=== PATIENT | female | born 2005 | race Caucasian/White ===

== ENCOUNTER 2024-06-22 10:55 | Emergency (ER) | payer OTHER ==
[2024-06-22 11:26] LABS: BASOPHILS PERCENT AUTO 0.3 % (0.2-1.2); EOSINOPHILS ABSOLUTE AUTO 0.2 x10^3/uL (0.0-0.5); HEMATOCRIT 40.5 % (33.0-47.0); HEMOGLOBIN 14.4 g/dL (12.0-16.0); IMMATURE GRAN ABSOLUTE AUTO 0.01 x10^3/uL (0.00-0.07); LYMPHOCYTES ABSOLUTE AUTO 2.4 x10^3/uL (1.0-4.8); LYMPHOCYTES PERCENT AUTO 36.1 % (25.0-50.0); MEAN CORPUSCULAR HEMOGLOBIN 30.5 pg (26.0-32.0); MEAN CORPUSCULAR HGB CONC 35.6 g/dL (32.0-36.0); MEAN CORPUSCULAR VOLUME 85.8 fL (78.0-93.0); MONOCYTES ABSOLUTE AUTO 0.4 x10^3/uL (0.0-0.8); MONOCYTES PERCENT AUTO 6.2 % (2.0-11.0); NEUTROPHILS ABSOLUTE AUTO 3.7 x10^3/uL (1.8-7.7); NEUTROPHILS PERCENT AUTO 54.3 % (50.0-80.0); PLATELET COUNT,PLT 314 x10^3/uL (130-400); RED BLOOD CELL COUNT 4.72 x10^6/uL (4.00-5.50); WHITE BLOOD CELL COUNT,WBC 6.7 x10^3/uL (4.0-10.0)
[2024-06-22 11:38] LABS: APPEARANCE,URINE CLEAR (CLEAR); BILIRUBIN,URINE NEGATIVE (NEGATIVE); COLOR,URINE YELLOW (YELLOW); GLUCOSE,URINE NEGATIVE (NEGATIVE); KETONES,URINE NEGATIVE (NEGATIVE); LEUKOCYTE ESTERASE,URINE TRACE (NEGATIVE); NITRITE,URINE NEGATIVE (NEGATIVE); OCCULT BLOOD,URINE NEGATIVE (NEGATIVE); PROTEIN,URINE NEGATIVE (NEGATIVE); UROBILINOGEN,URINE 0.2 EU/dL (0.2)
[2024-06-22 11:42] LABS: A/G RATIO 0.93; ALANINE AMINOTRANSFERASE,ALT 10 U/L (14-59); ALBUMIN 3.7 g/dL (3.4-5.0); ALKALINE PHOSPHATASE 76 U/L (46-116); ASPARTATE AMNIOTRANSFERASE,AST 12 U/L (15-37); BILIRUBIN TOTAL 0.9 mg/dL (0.2-1.0); BLOOD UREA NITROGEN,BUN 5 mg/dL (7-18); CALCIUM 9.3 mg/dL (8.5-10.1); CARBON DIOXIDE,CO2 23 mmol/L (21-32); CHLORIDE,CL 105 mmol/L (98-107); CREATININE 0.9 mg/dL (0.55-1.02); GLUCOSE RANDOM 91 mg/dL (70-99); POTASSIUM,K 3.7 mmol/L (3.5-5.1); PROTEIN TOTAL,TP 7.7 g/dL (6.4-8.2); SODIUM,NA 142 mmol/L (136-145)
[2024-06-22 11:43] LABS: ANION GAP 17.7 mmol/L (5-15); ESTIMATED GFR 94 mL/min (>=60)
[2024-06-22 11:45] LABS: AMPHETAMINES SCREEN, URINE NEGATIVE (NEGATIVE); BARBITURATE SCREEN,URINE NEGATIVE (NEGATIVE); BUPRENORPHINE SCREEN,URINE NEGATIVE (NEGATIVE)
[2024-06-22 11:46] LABS: BENZODIAZEPINES SCREEN,URINE NEGATIVE (NEGATIVE); COCAINE METABOLITES,URINE NEGATIVE (NEGATIVE); METHADONE SCREEN, URINE NEGATIVE (NEGATIVE); METHAMPHETAMINE SCREEN, URINE NEGATIVE (NEGATIVE); OXYCODONE SCREEN,URINE NEGATIVE (NEGATIVE); PCP SCREEN,URINE NEGATIVE (NEGATIVE); THC SCREEN,URINE 50 NG/ML POSITIVE (NEGATIVE)
[2024-06-22 11:53] LABS: BACTERIA,URINE OCCASIONAL /HPF (NOT SEEN); RBC,URINE 0-5 /HPF (NOT SEEN); SQUAMOUS EPITHELIAL CELLS,UR OCCASIONAL /HPF (NOT SEEN); WBC,URINE 0-5 /HPF (NOT SEEN)
[2024-06-22] MEDS: LORazepam 0.5 MG Tab PO ONE (12:00)
[2024-06-22] MEDS: Ondansetron 4 MG Tab.DIS PO ONE (12:26)
[2024-06-22] MEDS ORDERED: Ibuprofen 200 MG Tab PO PRN (12:28)
[2024-06-22] MEDS: Ibuprofen 200 MG Tab PO ONE (12:57)
== END 2024-06-22 13:03 | disposition home or self-care (01) ==
LOC: VM.ED 10:55
DX: F41.9 Anxiety disorder, unspecified (principal); Z79.899 Other long term (current) drug therapy
CPT/HCPCS: 36415; 80053; 80305-QW; 81001; 85025; 87086; 99283; 99284; A9270-GY

== ENCOUNTER 2024-08-28 22:09 | Emergency (ER) | payer MEDICAID ==
[2024-08-28 22:48] LABS: BASOPHILS PERCENT AUTO 0.4 % (0.2-1.2); EOSINOPHILS ABSOLUTE AUTO 0.3 x10^3/uL (0.0-0.5); EOSINOPHILS PERCENT AUTO 3.5 % (0.0-4.0); HEMATOCRIT 41.1 % (33.0-47.0); HEMOGLOBIN 14.6 g/dL (12.0-16.0); LYMPHOCYTES ABSOLUTE AUTO 3.8 x10^3/uL (1.0-4.8); LYMPHOCYTES PERCENT AUTO 50.7 % (25.0-50.0); MEAN CORPUSCULAR HEMOGLOBIN 30.4 pg (26.0-32.0); MEAN CORPUSCULAR HGB CONC 35.5 g/dL (32.0-36.0); MEAN CORPUSCULAR VOLUME 85.4 fL (78.0-93.0); MONOCYTES ABSOLUTE AUTO 0.5 x10^3/uL (0.0-0.8); MONOCYTES PERCENT AUTO 6.6 % (2.0-11.0); NEUTROPHILS ABSOLUTE AUTO 2.9 x10^3/uL (1.8-7.7); NEUTROPHILS PERCENT AUTO 38.8 % (50.0-80.0); PLATELET COUNT,PLT 249 x10^3/uL (130-400); RED BLOOD CELL COUNT 4.81 x10^6/uL (4.00-5.50); WHITE BLOOD CELL COUNT,WBC 7.4 x10^3/uL (4.0-10.0)
[2024-08-28 23:15] LABS: A/G RATIO 0.92; ALANINE AMINOTRANSFERASE,ALT 22 U/L (14-59); ALBUMIN 3.4 g/dL (3.4-5.0); ALKALINE PHOSPHATASE 87 U/L (46-116); ASPARTATE AMNIOTRANSFERASE,AST 17 U/L (15-37); BILIRUBIN TOTAL 0.4 mg/dL (0.2-1.0); BLOOD UREA NITROGEN,BUN 19 mg/dL (7-18); C-REACTIVE PROTEIN 1.66 mg/dL (<=0.50); CALCIUM 9.6 mg/dL (8.5-10.1); CARBON DIOXIDE,CO2 28 mmol/L (21-32); CHLORIDE,CL 103 mmol/L (98-107); CREATININE 0.8 mg/dL (0.55-1.02); GLUCOSE RANDOM 82 mg/dL (70-99); POTASSIUM,K 4.2 mmol/L (3.5-5.1); PROTEIN TOTAL,TP 7.1 g/dL (6.4-8.2); SODIUM,NA 142 mmol/L (136-145)
[2024-08-28 23:16] LABS: ANION GAP 15.2 mmol/L (5-15); ESTIMATED GFR 107 mL/min (>=60)
== END 2024-08-29 00:02 | disposition home or self-care (01) ==
LOC: VM.ED 22:09
DX: R07.1 Chest pain on breathing (principal); Z79.51 Long term (current) use of inhaled steroids; Z79.899 Other long term (current) drug therapy
CPT/HCPCS: 36415; 71046; 80053; 84484; 85025; 85379; 86140; 93005; 93010; 99284; 99285

== ENCOUNTER 2024-10-25 13:57 | Emergency (ER) | payer MEDICAID ==
[2024-10-25] MEDS: Take Home: Ondansetron 4 MG Tab.DIS, 5 Tab Pack PO ONE (14:49)
[2024-10-25] MEDS: Take Home: Oseltamivir 75 MG Cap, 2 Cap Pack PO ONE (14:49)
== END 2024-10-25 15:01 | disposition home or self-care (01) ==
LOC: VM.ED 13:57
DX: J10.1 Influenza due to other identified influenza virus with other respiratory manifestations (principal); Z79.2 Long term (current) use of antibiotics; Z79.899 Other long term (current) drug therapy
CPT/HCPCS: 87428; 99283; A9270; Q0162

== ENCOUNTER 2025-02-03 13:51 | Emergency (ER) | payer MEDICAID ==
[2025-02-03] MEDS ORDERED: Sodium Chloride 0.9% 10 ML Syringe FLUSH PRN (14:23)
[2025-02-03 14:45] LABS: BASOPHILS PERCENT AUTO 0.2 % (0.2-1.2); EOSINOPHILS PERCENT AUTO 0.5 % (0.0-4.0); HEMATOCRIT 40.7 % (33.0-47.0); HEMOGLOBIN 14.1 g/dL (12.0-16.0); IMMATURE GRAN ABSOLUTE AUTO 0.01 x10^3/uL (0.00-0.07); LYMPHOCYTES ABSOLUTE AUTO 1.2 x10^3/uL (1.0-4.8); LYMPHOCYTES PERCENT AUTO 29.4 % (25.0-50.0); MEAN CORPUSCULAR HEMOGLOBIN 29.4 pg (26.0-32.0); MEAN CORPUSCULAR HGB CONC 34.6 g/dL (32.0-36.0); MONOCYTES ABSOLUTE AUTO 0.4 x10^3/uL (0.0-0.8); MONOCYTES PERCENT AUTO 9.3 % (2.0-11.0); NEUTROPHILS ABSOLUTE AUTO 2.5 x10^3/uL (1.8-7.7); NEUTROPHILS PERCENT AUTO 60.4 % (50.0-80.0); PLATELET COUNT,PLT 194 x10^3/uL (130-400); RED BLOOD CELL COUNT 4.79 x10^6/uL (4.00-5.50); WHITE BLOOD CELL COUNT,WBC 4.2 x10^3/uL (4.0-10.0)
[2025-02-03] MEDS: Sodium Chloride 0.9% 1,000 ML IV ONE (14:50)
[2025-02-03] MEDS: Ondansetron 4 MG/2 ML SDV IVPUSH ONE (14:50)
[2025-02-03 14:59] LABS: A/G RATIO 0.89; ALANINE AMINOTRANSFERASE,ALT 19 U/L (14-59); ALBUMIN 3.4 g/dL (3.4-5.0); ALKALINE PHOSPHATASE 82 U/L (46-116); ASPARTATE AMNIOTRANSFERASE,AST 19 U/L (15-37); BILIRUBIN TOTAL 0.4 mg/dL (0.2-1.0); BLOOD UREA NITROGEN,BUN 11 mg/dL (7-18); CALCIUM 8.4 mg/dL (8.5-10.1); CARBON DIOXIDE,CO2 24 mmol/L (21-32); CHLORIDE,CL 101 mmol/L (98-107); CREATININE 0.9 mg/dL (0.55-1.02); GLUCOSE RANDOM 95 mg/dL (70-99); POTASSIUM,K 3.8 mmol/L (3.5-5.1); PROTEIN TOTAL,TP 7.2 g/dL (6.4-8.2); SODIUM,NA 137 mmol/L (136-145)
[2025-02-03 15:03] LABS: ANION GAP 15.8 mmol/L (5-15); ESTIMATED GFR 93 mL/min (>=60)
== END 2025-02-03 16:07 | disposition home or self-care (01) ==
LOC: VM.ED 13:51
DX: R42 Dizziness and giddiness (principal); E86.0 Dehydration; Z79.899 Other long term (current) drug therapy
CPT/HCPCS: 80053; 81025; 85025; 96361; 96374; 99284; J2405; J7030

== ENCOUNTER 2025-05-27 23:18 | Emergency (ER) | payer MEDICAID ==
[2025-05-27] MEDS: Take Home: Amoxicillin 875 MG Tab, 2 Tab Pack PO ONE (23:57)
== END 2025-05-27 23:56 | disposition home or self-care (01) ==
LOC: VM.ED 23:18
DX: J02.9 Acute pharyngitis, unspecified (principal); Z79.899 Other long term (current) drug therapy; Z87.891 Personal history of nicotine dependence
CPT/HCPCS: 99282; 99283; A9270-GY